=== PATIENT | female | born 1940 | race Caucasian/White ===

== ENCOUNTER 2018-08-16 08:41 | Emergency (ER) | payer MEDICARE, OTHER ==
[2018-08-16] MEDS: METHYLPREDNISOLONE 125 MG INJ IM (09:19)
[2018-08-16] MEDS ORDERED: PIPER-TAZO 2.25 GM (PMX) 50 ML IVPB (10:30)
== END 2018-08-16 10:25 | disposition home or self-care (01) ==
LOC: FTE 10:25
DX: R05 Cough (principal); I10 Essential (primary) hypertension
CPT/HCPCS: 71046; 96372; 99284-25